=== PATIENT | female | born 1985 | race Caucasian/White ===

== ENCOUNTER 2022-08-19 17:46 | Emergency (ER) | payer BC, SELFPAY ==
[2022-08-19 18:00] VITALS: BP 143/99; PULSE 93; RESP 16; TEMP 36.6; O2SAT 99
--- NOTE | 2022-08-19 18:28 | ED.GENADULT ---
HPI - General Adult General Chief complaint: Unspecified Stated complaint: elevated blood pressure Time Seen by Provider: 08/19/22 18:18 Source: patient, RN notes reviewed and old records reviewed Mode of arrival: ambulatory Limitations: no limitations History of Present Illness HPI narrative: 37-year-old female presents to [facility] with complaints of elevated blood pressure and some pressure, tightness, squeezing sensation to her upper chest that started yesterday afternoon. Patient reports that she continues to have tightness sensation to her chest, pressure like sensation and feels a little short of breath.Patient reports no increase pain with deep breathing, no tachypnea noted with SAO2 99% on room air. Patient reports that she tried to give blood 2X since Wednesday and they turned her away because her blood pressure was elevated.Reports that she has had some lower back pain for 2 weeks with no known injury. MD complaint: elevated blood pressure and tightness pressure to chest. Onset (ago): day(s) (day 2 of symptoms for chest pressure) Related Data Allergies Allergy/AdvReac Type Severity Reaction Status Date / Time No Known Allergies Allergy Verified 08/19/22 18:06 Review of Systems Review of Systems: CONSTITUTIONAL: Denies fever, chills, or sweats. EYES: Denies visual changes, redness, or discharge. ENT: Denies rhinorrhea, congestion, sore throat, or otalgia. CARDIOVASCULAR: Reports chest tightness pressure sensation upper chest region, no palpitations, or edema. RESPIRATORY: Denies cough or dyspnea. GASTROINTESTINAL: Denies abdominal pain, nausea, vomiting, or diarrhea. GENITOURINARY: Denies dysuria or hematuria. SKIN: Denies rash or itching. MUSCULOSKELETAL: Reports lower back pain for 2 week interval with no known injury,no other joint pain, or myalgia. NEUROLOGIC: Denies headache, numbness, or weakness. PSYCHIATRIC: Denies anxiety or depression. All systems reviewed & are unremarkable except as noted in HPI and below PMFSH Past Medical History Medical History Femur fracture vanessa Surgical History Surgical History Hx of tonsillectomy Social History Social History (Updated 08/22/22 @ 11:04 by Lynne Valle NP) Smoking status: Never smoker Alcohol use details: social Substance use type: does not use Gender identity (if verbalized by the patient): Female Comments At time of signature, agree with nursing past medical, surgical, social and family history. There is no relevant family history pertinent to the presenting complaint Exam Narrative: GENERAL: Well-appearing, well-nourished, and in no acute distress. HEAD: Normocephalic, atraumatic. EYES: PERRLA and EOMI. ENT: Nares clear, no rhinorrhea or epistaxis. Mucous membranes moist.TM's normal with good light reflex, throat pink with no lesions or exudates. NECK: Supple.no lymphadenopathy CHEST: Clear to auscultation. No respiratory distress.SAO2 99% on room air HEART: Regular rate and rhythm. No murmur heard. Normal peripheral pulses. pressure and tightness to chest ABDOMEN: Soft, nontender, nondistended, normal active bowel sounds. EXTREMITIES: Normal range of motion. No edema. SKIN: Warm, dry, no rash. NEURO: No focal deficits. Alert and oriented x3. Course Course Emergency Course: Patient is aware of diagnosis, understands and agrees to treatment plan.? Anticipatory guidance given.? Patient agrees to follow-up as directed and is aware of reasons to seek care at the emergency department. Portions of this record may have been created with voice recognition software Level of Care: Express Care Visit Vital Signs Vital signs: Vital Signs Temperature 36.6 C 08/19/22 18:00 Pulse Rate 93 08/19/22 18:00 Respiratory Rate 16 08/19/22 18:00 Blood Pressure 143/99 H 08/19/22 18:00 Pulse Oximetry 99 08/19/22 18:00 Oxy
--- NOTE | 2022-08-19 18:50 | ECG_ITS ---
Measurements Intervals [place] Rate: 80 P: 15 ND: 149 QRS: 37 QRSD: 84 T: 34 QT: 371 QTc: 430 Interpretive Statements SINUS RHYTHM NO PREVIOUS ECG AVAILABLE FOR COMPARISON Electronically Signed On 08-20-2022 18:15:49 CDT by Amelie Schultz M.D.
[2022-08-19 19:03] LABS: Glucose Point of Care 83 mg/dl (65-105)
[2022-08-19 19:07] VITALS: BP 144/98
== END 2022-08-19 19:50 | disposition short-term general hospital (02) ==
PROVIDERS: Emergency Provider Registered Nurse
DX: R07.89 Other chest pain (principal); R03.0 Elevated blood-pressure reading, without diagnosis of hypertension
CPT/HCPCS: 82948; 93005; 99213; G0463

== ENCOUNTER 2022-08-19 20:13 | Emergency (ER) | payer BC, SELFPAY ==
[2022-08-19] VITALS (11 sets, daily range): BP systolic 140–159; BP diastolic 90–99; PULSE 77–86; RESP 11–20; TEMP 36.6; O2SAT 98–100
--- NOTE | ~2022-08-19 | CT_ITS ---
Clinical Indication: Shortness of breath CT Scan of the Chest with Contrast: Technique: Contiguous sections were acquired throughout the chest after intravenous administration of 100 cc of Omnipaque 350. Dose reduction technique was used on this scan by utilizing automated expos ure control and iterative reconstruction technique. The dose-length product (DLP) was 396.29 mGy-cm. Findings: There is no evidence of any significant mediastinal, hilar or axillary lymphadenopathy. There is no f illing defect in the pulmonary arterial tree to suggest pulmonary embolus. There is no evidence of ao rtic dissection or aneurysm. There is no evidence of pleural or pericardial effusion. The lungs are clear. No pulmonary nodules or infiltrates are noted. Images through the upper abdomen reveal no abnormalities. Impression: No evidence of pulmonary embolus, aortic dissection, or aortic aneurysm. Clear lungs. Reviewed, dictated and finalized at [facility]. Impression: No evidence of pulmonary embolus, aortic dissection, or aortic aneurysm. Clear lungs.
--- NOTE | ~2022-08-19 | XR_ITS ---
EXAMINATION: XR chest 2V 08/19/2022 21:16 INDICATION: Chest pressure PROCEDURE: 2 view chest COMPARISON: No prior studies for comparison. FINDINGS: The lungs are clear. The cardiomediastinal silhouette is within normal limits. There are no pleural effusions. There is no pneumothorax suspected. IMPRESSION: 1: NO ACUTE CARDIOPULMONARY DISEASE. Reviewed, dictated and finalized at location A.
--- NOTE | 2022-08-19 20:14 | ECG_ITS ---
Measurements Intervals [place] Rate: 86 P: 63 ME: 157 QRS: 22 QRSD: 74 T: 30 QT: 360 QTc: 432 Interpretive Statements SINUS RHYTHM COMPARED TO ECG 08/19/2022 18:18:25 NO SIGNIFICANT CHANGES Electronically Signed On 08-20-2022 18:17:16 CDT by Amelie Schultz M.D.
[2022-08-19 21:07] LABS: Basophils Absolute Auto 0.1 K/mm3 (0.0-0.1); Basophils Percent Auto 0.6 % (0.2-1.2); Eosinophils Absolute Auto 0.1 K/mm3 (0-0.3); Eosinophils Percent Auto 0.8 % (0-4.4); Hematocrit 45.5 % (37.0-47.0); Hemoglobin 14.9 g/dL (12.0-15.0); Immature Granulocyte Absolute 0.03 K/mm3 (0.00-0.031); Immature Granulocyte Percent A 0.2 % (0-0.5); Lymphocytes Absolute Auto 4.13 K/mm3 (0.9-3.2); Lymphocytes Percent Auto 29.2 % (18.3-44.2); Mean Corpuscular HGB Conc 32.7 g/dl (32-36); Mean Corpuscular Hemoglobin 31.8 pg (26-34); Mean Platelet Volume 9.8 fl (7.4-10.4); Monocytes Absolute Auto 0.7 K/mm3 (0.1-0.6); Monocytes Percent Auto 4.7 % (2.6-8.5); Neutrophils Absolute Auto 9.1 K/mm3 (1.3-6.7); Neutrophils Percent Auto 64.5 % (45.5-73.1); Platelet Count Result 425 k/mm3 (150-375); Red Blood Count 4.69 M/mm3 (4.2-5.4); Red Cell Distribution Width 12.7 % (11.5-14.5); White Blood Count 14.1 K/mm3 (4.5-10.0)
[2022-08-19 21:18] LABS: Alanine Aminotransferase 23 U/L (6-35); Albumin Level 4.7 g/dL (3.5-5.1); Alkaline Phosphatase 90 U/L (38-126); Anion Gap 9 mmol/L (8-16); Aspartate Amino Transferase 28 U/L (14-36); Bilirubin,Total 0.8 mg/dL (0.2-1.3); Blood Urea Nitrogen 8 mg/dL (7-17); Carbon Dioxide 24 mmol/L (22-30); Chloride 105 mmol/L (98-107); Estimated CRCL calculation 97 ml/min; Estimated Glomerular Filt Rate > 60; Glucose 85 mg/dL (65-110); Lipase 160 U/L (23-300); Potassium 3.8 mmol/L (3.4-5.0); Sodium 138 mmol/L (137-145)
[2022-08-19 21:20] LABS: INR 0.9; Partial Thromboplastin Time 22.6 SECONDS (22.3-36.8); Prothrombin Time 11.9 Seconds (11.1-14.7)
[2022-08-19 21:29] LABS: Troponin I < 0.012 ng/mL (0.000-0.034)
--- NOTE | 2022-08-19 22:14 | ECG_ITS ---
Measurements Intervals [place] Rate: 80 P: 3 ND: 164 QRS: 26 QRSD: 78 T: 21 QT: 367 QTc: 425 Interpretive Statements SINUS RHYTHM COMPARED TO ECG 08/19/2022 20:23:33 NO SIGNIFICANT CHANGES Electronically Signed On 08-20-2022 18:20:00 CDT by Amelie Schultz M.D.
--- NOTE | 2022-08-19 22:14 | ED.CHESTPAIN ---
HPI - Chest Pain General Chief Complaint: Chest Pain <Jennifer Quezada PA-C - Last Filed: 08/20/22 02:30> Stated Complaint: chest pressure <Jennifer Quezada PA-C - Last Filed: 08/20/22 02:30> Time Seen by Provider: 08/19/22 22:01 <Jennifer Quezada PA-C - Last Filed: 08/20/22 02:30> History of Present Illness HPI narrative: Patient is a 37-year-old female here for evaluation of chest pain for the past 3 days. Patient describes it as a band of tightness across the anterior chest, worse with deep breaths. States that she just has difficulty getting a deep breath in. She was seen in urgent care today and referred to the ED given her elevated blood pressures of 150/90. She denies any leg swelling, cough, fevers, chills, nausea or vomiting. <Jennifer Quezada PA-C - Last Filed: 08/20/22 02:30> Related Data Allergies/Adverse Reactions: Allergies Allergy/AdvReac Type Severity Reaction Status Date / Time No Known Allergies Allergy Verified 08/19/22 18:06 <Jennifer Quezada PA-C - Last Filed: 08/20/22 02:30> Review of Systems Review of Systems: Gen: Denies fevers or chills Eyes: Denies eye pain or visual change ENT: Denies congestion Respiratory: reports shortness of breath CV: reports chest pain GI: Denies abdominal pain nausea, emesis or diarrhea : denies burning, urgency, frequency or hematuria Musculoskeletal: Denies back pain or muscle pain Neuro: Denies numbness, tingling, weakness or focal weakness Skin: Denies rash Except as documented, all other systems reviewed and negative <Jennifer Quezada PA-C - Last Filed: 08/20/22 02:30> [facility] Past Medical History Medical History: Medical History Femur fracture vanessa <Jennifer Quezada PA-C - Last Filed: 08/20/22 02:30> Surgical History Surgical History: Surgical History Hx of tonsillectomy <Jennifer Quezada PA-C - Last Filed: 08/20/22 02:30> Exam Narrative: APPEARANCE: Well appearing, no pain in distress, well-nourished. Head: Normocephalic and atraumatic. EYES: PERRLA/EOMI, conjunctivae clear NOSE: No nasal drainage EARS: External ear normal in appearance THROAT: Oropharynx is clear. Mucous membranes are moist. NECK: Supple. No adenopathy, no masses. RESPIRATORY: Airway patent, respirations nonlabored. Clear to auscultation bilaterally, no rales, rhonchi, wheezing. CARDIOVASCULAR: Regular rate and rhythm without murmurs, rubs, or gallops. ABDOMINAL: Normoactive bowel sounds. Soft, nontender, nondistended. No rebound tenderness or guarding. MUSCULOSKELETAL: No tenderness to palpation along the chest wall. Extremities are warm and well-perfused. Moves all extremities well. No edema. NEURO: Normal speech. No focal neurologic deficits. SKIN: Skin is warm and dry. No rashes. PSYCHIATRIC: Normal affect/mood. <Jennifer Quezada PA-C - Last Filed: 08/20/22 02:30> Course [employer]RECTIONAL THERAPY TEACHER/PA Physician Supervision This is a was performed by both a physician and an APC. I performed all aspects of the MDM as documented w/ the following additions: This is a 37-year-old female presenting with a chief complaint of chest pain. Workup including CT PE was negative for any acute findings. Patient has been discharged with primary care follow-up and return precautions.All questions answered. Patient in agreement w/ disposition. <Amor Chapa MD - Last Filed: 08/21/22 18:15> Vital Signs Vital signs: Vital Signs Temperature 97.9 F 08/19/22 20:27 Pulse Rate 86 08/19/22 20:27 Respiratory Rate 20 08/19/22 20:27 Blood Pressure 159/96 H 08/19/22 20:27 Pulse Oximetry 100 08/19/22 20:27 Oxygen Delivery Room Air 08/19/22 20:27 Temperature 98 F 08/20/22 01:27 Pulse Rate 84 08/20/22 01:27 Respiratory Rate 18 08/20/22 01:27 Blood Pressure
[2022-08-19 23:38] LABS: D Dimer 2.38 ug/mL (<0.48)
[2022-08-20 00:14] LABS: Troponin I < 0.012 ng/mL (0.000-0.034)
[2022-08-20 01:27] VITALS: BP 131/79; PULSE 84; RESP 18; TEMP 36.6; O2SAT 99
== END 2022-08-20 01:28 | disposition home or self-care (01) ==
PROVIDERS: Emergency Medicine; Emergency Provider Physician Assistant
DX: R07.89 Other chest pain (principal)
CPT/HCPCS: 36415; 71046; 71275; 80053; 83690; 84484; 85025; 85380; 85610; 85730; 93005; 99284; Q9967

== ENCOUNTER 2023-01-01 08:39 | Outpatient (CLI) | payer BC, SELFPAY ==
--- NOTE | ~2023-01-01 | US_ITS ---
EXAMINATION: US right upper quadrant DATE: 01/01/2023 13:47 INDICATION: Other specified diseases of liver. TECHNIQUE: Multiple grayscale and Doppler ultrasound images of the abdomen were obtained. COMPARISON: Chest CT 08/20/2022 FINDINGS: The visualized portions of the head, body, and tail of the pancreas are normal. The liver i s normal without focal lesion. The gallbladder is normal size. No gallstones or gallbladder wall thic kening. There is no sonographic Villa sign. There is normal flow in main portal vein. The common ginger t is normal and measures 4 mm. IMPRESSION: 1. Normal right upper quadrant ultrasound. Reviewed, dictated and finalized at location E.
== END 2023-01-01 08:40 | disposition home or self-care (01) ==
LOC: ANHIMG 08:43
PROVIDERS: PCP Internal Medicine; Visit Provider Internal Medicine
DX: K76.89 Other specified diseases of liver (principal)
CPT/HCPCS: 76705

== ENCOUNTER → 2023-04-05 15:19 | Outpatient (CLI) | payer BC, SELFPAY ==
--- NOTE | ~2023-04-05 | US_ITS ---
EXAMINATION: US soft tissue head and neck DATE: 04/05/2023 15:43 INDICATION: Left neck mass. TECHNIQUE: Multiple grayscale and Doppler ultrasound images of the head and neck were obtained. COMPARISON: Chest CT 08/20/2022 FINDINGS: There is a normal superficial lymph node in left posterior neck in the patient's area of co ncern. IMPRESSION: 1. Normal lymph node in the patient's area of concern in left posterior neck. Reviewed, dictated and finalized at location E. ICAL DENTAL ASSISTANT
== END ==
PROVIDERS: PCP Internal Medicine; Visit Provider Internal Medicine
DX: R22.1 Localized swelling, mass and lump, neck (principal)
CPT/HCPCS: 76536